=== PATIENT | female | born 1950 | race African-American/Black ===

== ENCOUNTER 2017-05-22 07:54 | Inpatient (IN) | payer MEDICARE ==
[~2017-05-22] VITALS: Ht 165.1 cm; Wt 61.2 kg
[~2017-05-22 07:54] MED LIST: INSASP; LOP25; METF500T
[2017-05-22 08:25] LABS: BASOPHILS % 0.6 % (0.0-2.0); EOSINOPHILS % 0.4 % (0.0-5.0); HEMATOCRIT. 33.6 % (36.0-48.0); HEMOGLOBIN. 10.6 g/dL (12.0-16.0); LYMPHOCYTES % 21.7 % (20.0-50.0); MEAN CORPUSCULAR HEMOGLOBIN 25.7 pg (28.0-32.0); MEAN CORPUSCULAR VOLUME 81.7 fL (81.0-99.0); MEAN PLATELET VOLUME 8.1 fl (7.4-10.4); MONOCYTES % 3.5 % (2.0-8.0); NEUTROPHILS % 73.8 % (40.0-76.0); PLATELET 384 x1000/uL (130-400); RED BLOOD CELL COUNT 4.11 mill/uL (4.2-5.4); RED CELL DISTRIBUTION WIDTH 13.8 % (11.6-14.6)
[2017-05-22 08:39] LABS: CHLORIDE 98 mEq/L (98-107)
[2017-05-22 08:44] LABS: CARBON DIOXIDE 26 mEq/L (21-32)
[2017-05-22] MEDS ORDERED: SODIUM CHLORIDE 0.9% 1,000 ML IV ONE (09:15)
[2017-05-22 12:00] VITALS: BP 183/83
[2017-05-22] MEDS ORDERED: TRAMADOL 50MG TABLET PO PRN (12:15)
[2017-05-22] MEDS ORDERED: MAGNESIUM/ALUMINUM HYDROXIDE/SIMETHICONE 30ML UDC PO PRN (12:15)
[2017-05-22] MEDS ORDERED: IPRATROPIUM/ALBUTEROL 0.5-3(2.5)MG/3ML NEB INH PRN (12:15)
[2017-05-22] MEDS ORDERED: DIPHENHYDRAMINE 50MG/ML VIAL IV PRN (12:15)
[2017-05-22] MEDS ORDERED: NITROGLYCERIN 0.4MG TABLET SL SL PRN (12:15)
[2017-05-22] MEDS ORDERED: DEXTROSE 50% WATER 50ML SYRINGE IV PRN (12:15)
[2017-05-22] MEDS ORDERED: ACETAMINOPHEN 325MG TABLET PO PRN (12:15)
[2017-05-22] MEDS ORDERED: LORAZEPAM 0.5MG TABLET PO PRN (12:15)
[2017-05-22] MEDS ORDERED: GUAIFENESIN 200MG/10ML SUGAR FREE UDC PO PRN (12:15)
[2017-05-22] MEDS ORDERED: ONDANSETRON HCL 4MG/2ML VIAL IV PRN (12:15)
[2017-05-22] MEDS ORDERED: NA PHOS,M-B/NA PHOS,DI-BA ENEMA 118ML PR PRN (12:15)
[2017-05-22] MEDS ORDERED: ZOLPIDEM TARTRATE 5MG TABLET PO PRN (12:15)
[2017-05-22] MEDS ORDERED: MORPHINE SULFATE 2 MG/ML CPJ (NOT FOR IM USE) IV PRN (12:15)
[2017-05-22] MEDS ORDERED: DOCUSATE SODIUM 100MG CAPSULE PO PRN (12:15)
[2017-05-22 12:45] VITALS: BP 183/83
[2017-05-22] MEDS: BLOOD SUGAR DIAGNOSTIC STRIP TEST SCH ×3 (13:00→21:16)
[2017-05-22 13:02] LABS: T4 FREE 1.23 ng/dL (0.76-1.46)
[2017-05-22 13:15] LABS: VITAMIN B12 SERUM 760 pg/mL (211-911)
[2017-05-22 13:16] LABS: FOLIC ACID (FOLATE) SERUM > 20.00 ng/mL (>5.38)
[2017-05-22] MEDS ORDERED: ATOR10TA69 PO (14:29)
[2017-05-22] MEDS: ASPIRIN 325MG EC TABLET PO SCH (15:29)
[2017-05-22] MEDS: SODIUM CHLORIDE 0.9% 1,000 ML IV SCH (15:29)
[2017-05-22] MEDS: ENOXAPARIN 30MG/0.3ML SYR SUBCUT SCH (15:30)
[2017-05-22] MEDS: CLONIDINE 0.1MG TABLET PO PRN (15:34)
[2017-05-22] MEDS: INSULIN LISPRO 100 UNITS/ML SUBCUT SCH ×3 (15:36→21:35)
[2017-05-22 16:00] VITALS: BP 141/63
[2017-05-22] MEDS: FAMOTIDINE 20MG/2ML VIAL IV SCH (17:47)
[2017-05-22 17:54] LABS: CREATINE KINASE MB FRACTION 11.4 ng/mL (0.5-3.6); TROPONIN I 0.03 ng/mL (0.00-0.04)
[2017-05-22 20:00] VITALS: BP 127/57
[2017-05-22] MEDS ORDERED: INSULIN GLARGINE UD 100 UNITS/ML SYR SUBCUT SCH (21:00)
[2017-05-22] MEDS: METOPROLOL TARTRATE 25MG TABLET PO SCH (21:16)
[2017-05-22] MEDS ORDERED: INSULIN DETEMIR UD 100 UNITS/ML SYR SUBCUT SCH (22:00)
[2017-05-23] VITALS: BP 125/65
[2017-05-23] MEDS: SODIUM CHLORIDE 0.9% 1,000 ML IV SCH (01:21)
[2017-05-23 01:36] LABS: CREATINE KINASE MB FRACTION 6.9 ng/mL (0.5-3.6); TROPONIN I 0.03 ng/mL (0.00-0.04)
[2017-05-23 04:00] VITALS: BP 158/74
[2017-05-23 07:40] LABS: BASOPHILS % 1.2 % (0.0-2.0); HEMATOCRIT. 27.4 % (36.0-48.0); HEMOGLOBIN. 8.9 g/dL (12.0-16.0); LYMPHOCYTES % 33.4 % (20.0-50.0); MEAN CORPUSCULAR HEMOGLOBIN 26.8 pg (28.0-32.0); MEAN CORPUSCULAR VOLUME 82.2 fL (81.0-99.0); MEAN PLATELET VOLUME 8.8 fl (7.4-10.4); MONOCYTES % 6.1 % (2.0-8.0); NEUTROPHILS % 57.3 % (40.0-76.0); PLATELET 310 x1000/uL (130-400); RED BLOOD CELL COUNT 3.33 mill/uL (4.2-5.4); RED CELL DISTRIBUTION WIDTH 14.3 % (11.6-14.6)
[2017-05-23 08:00] VITALS: BP 141/76
[2017-05-23] MEDS: INSULIN LISPRO 100 UNITS/ML SUBCUT SCH ×4 (08:11→22:19)
[2017-05-23] MEDS: METOPROLOL TARTRATE 25MG TABLET PO SCH ×3 (08:13→22:09)
[2017-05-23] MEDS: ASPIRIN 325MG EC TABLET PO SCH (08:14)
[2017-05-23] MEDS: BLOOD SUGAR DIAGNOSTIC STRIP TEST SCH ×4 (08:15→21:00)
[2017-05-23 08:49] LABS: CARBON DIOXIDE 23 mEq/L (21-32); CHLORIDE 108 mEq/L (98-107)
[2017-05-23 12:00] VITALS: BP 160/76
[2017-05-23 16:00] VITALS: BP 138/78
[2017-05-23] MEDS: FAMOTIDINE 20MG/2ML VIAL IV SCH (18:31)
[2017-05-23] MEDS: ZINC SULFATE 220 MG ( 50 ) CAPSULE PO SCH (18:31)
[2017-05-23] MEDS: MULTIVITAMINS,THER W-MINERALS TABLET PO SCH (18:31)
[2017-05-23] MEDS: ENOXAPARIN 30MG/0.3ML SYR SUBCUT SCH (18:32)
[2017-05-23 20:00] VITALS: BP 160/70
[2017-05-23] MEDS ORDERED: ATORVASTATIN CALCIUM 10MG TABLET PO SCH (21:00)
[2017-05-23] MEDS ORDERED: INSULIN GLARGINE UD 100 UNITS/ML SYR SUBCUT SCH (22:00)
[2017-05-23] MEDS: ASCORBIC ACID 250 MG TABLET PO SCH (22:08)
[2017-05-24] VITALS: BP 132/75
[2017-05-24 04:00] VITALS: BP 162/72
[2017-05-24] MEDS: CLONIDINE 0.1MG TABLET PO PRN (05:16)
[2017-05-24] MEDS: INSULIN LISPRO 100 UNITS/ML SUBCUT SCH ×2 (06:59→12:54)
[2017-05-24] MEDS: BLOOD SUGAR DIAGNOSTIC STRIP TEST SCH ×2 (06:59→12:18)
[2017-05-24 08:00] VITALS: BP 162/81
[2017-05-24] MEDS: MULTIVITAMINS,THER W-MINERALS TABLET PO SCH (08:20)
[2017-05-24] MEDS: ASCORBIC ACID 250 MG TABLET PO SCH (08:20)
[2017-05-24] MEDS: ZINC SULFATE 220 MG ( 50 ) CAPSULE PO SCH (09:50)
[2017-05-24] MEDS: ASPIRIN 325MG EC TABLET PO SCH (09:50)
[2017-05-24] MEDS: METOPROLOL TARTRATE 25MG TABLET PO SCH (09:51)
[2017-05-24 11:26] VITALS: BP 162/81
[2017-05-24 12:00] VITALS: BP 167/76
== END 2017-05-24 13:40 | disposition home or self-care (01) | DRG 682 ==
LOC: ER 08:22 → 6EST 09:40 → EDBEDREQSVC 11:18 → ENRESERV 11:33 → SUPCPDRO 12:00
PROVIDERS: ADMIT Internal Medicine; ATTEND Internal Medicine
DX: N17.0 Acute kidney failure with tubular necrosis (principal); G93.40 Encephalopathy, unspecified; E44.0 Moderate protein-calorie malnutrition; E11.649 Type 2 diabetes mellitus with hypoglycemia without coma; E87.1 Hypo-osmolality and hyponatremia; D63.8 Anemia in other chronic diseases classified elsewhere; E11.65 Type 2 diabetes mellitus with hyperglycemia; E83.52 Hypercalcemia; I10 Essential (primary) hypertension; Z79.4 Long term (current) use of insulin; Z79.899 Other long term (current) drug therapy; Z68.22 Body mass index [BMI] 22.0-22.9, adult
CPT/HCPCS: 36415; 80053; 80061; 82550; 82553; 82607; 82746; 82962; 83036; 83540; 83550; 84439; 84443; 84484; 85025; 93306; 93970; 96360; 96361; 99285; C1893; J1650; J1815; J3490; J7030